=== PATIENT | male | born 1990 | race Caucasian/White ===

== ENCOUNTER 2018-06-14 20:08 | Inpatient (IN) | payer OTHER, BC ==
[2018-06-14 21:01] LABS: HEMATOCRIT 41.8 % (42.0-52.0); HEMOGLOBIN 13.8 g/dl (13.5-17.5); MEAN CORPUSCULAR HEMOGLOBIN 28.1 pg (27.0-33.0); MEAN CORPUSCULAR VOLUME 85.1 fl (80.0-96.0); PLATELET COUNT, AUTOMATED 339 10^3/uL (150-450); RED BLOOD COUNT 4.91 10^6/uL (4.30-6.10); RED CELL DISTRIBUTION WIDTH 12.7 % (11.5-14.5); WHITE BLOOD COUNT 9.2 10^3/uL (4.0-10.0)
[2018-06-14 21:16] LABS: AMPHETAMINES LEVEL URINE NEGATIVE (NEGATIVE); BARBITURATES URINE NEGATIVE (NEGATIVE); BENZODIAZEPINES URINE NEGATIVE (NEGATIVE); CANNABINOIDS URINE NEGATIVE (NEGATIVE); COCAINE METABOLITE URINE NEGATIVE (NEGATIVE); METHADONE URINE NEGATIVE (NEGATIVE); OPIATES URINE NEGATIVE (NEGATIVE); PHENCYCLIDINE URINE NEGATIVE (NEGATIVE)
[2018-06-14 21:38] LABS: ALBUMIN 4.1 GM/DL (3.2-5.2); ALBUMIN/GLOBULIN RATIO 1.14 (1.00-1.93); ALKALINE PHOSPHATASE 81 U/L (45-117); ALT/SGPT 39 U/L (12-78); ANION GAP 8 MEQ/L (8-16); AST/SGOT 21 U/L (7-37); BILIRUBIN,DIRECT 0.1 MG/DL (0.0-0.2); BILIRUBIN,TOTAL 0.7 MG/DL (0.2-1.0); BLOOD UREA NITROGEN 17 MG/DL (7-18); CALCIUM LEVEL 8.8 MG/DL (8.5-10.1); CARBON DIOXIDE LEVEL 27 MEQ/L (21-32); CHLORIDE LEVEL 109 MEQ/L (98-107); CREATININE FOR GFR 0.95 MG/DL (0.70-1.30); ETHYL ALCOHOL (ETHANOL) 0.004 % (0.000-0.010); GLOMERULAR FILTRATION RATE > 60.0 (>60); GLUCOSE, FASTING 99 MG/DL (70-100); SALICYLATE LEVEL < 1.7 MG/DL (5.0-30.0); SODIUM LEVEL 144 MEQ/L (136-145); THYROID STIMULATING HORMONE 0.645 uIU/ML (0.358-3.740); TOTAL PROTEIN 7.7 GM/DL (6.4-8.2)
[2018-06-14 21:39] LABS: ACETAMINOPHEN LEVEL < 2.0 UG/ML (10.0-30.0)
[2018-06-14] MEDS ORDERED: MAALOX 30 ML SUSP *UDC PO (22:30)
[2018-06-14] MEDS ORDERED: MOM 30ML SUSPENSION UDC PO (22:30)
[2018-06-14] MEDS ORDERED: LORazepam 2 MG TAB PO (22:30)
[2018-06-14] MEDS: risperiDONE 2 MG TAB PO (23:19)
[2018-06-15] MEDS: risperiDONE 2 MG TAB PO (21:17)
[2018-06-16] MEDS: FLUoxetine 10 MG CAP PO (13:01)
[2018-06-16] MEDS: risperiDONE 3 MG TAB PO (20:58)
[2018-06-17] MEDS: FLUoxetine 10 MG CAP PO (08:38)
[2018-06-17] MEDS: risperiDONE 3 MG TAB PO (21:15)
[2018-06-18] MEDS: FLUoxetine 10 MG CAP PO (08:02)
[2018-06-18] MEDS: risperiDONE 3 MG TAB PO (21:58)
[2018-06-18] MEDS: traZODone 50 MG TAB PO (21:59)
[2018-06-19] MEDS: FLUoxetine 10 MG CAP PO (08:11)
[2018-06-19] MEDS: risperiDONE 2 MG TAB PO (21:22)
[2018-06-19] MEDS: traZODone 50 MG TAB PO (22:32)
[2018-06-20] MEDS: FLUoxetine 20 MG CAP PO (08:01)
[2018-06-20] MEDS: ACETAMINOPHEN TAB 650MG DOSE (2X325MG) PO (21:16)
[2018-06-20] MEDS: risperiDONE 2 MG TAB PO (21:16)
[2018-06-20] MEDS: traZODone 50 MG TAB PO (22:33)
[2018-06-21] MEDS: FLUoxetine 20 MG CAP PO (08:03)
[2018-06-21] MEDS: risperiDONE 2 MG TAB PO (20:29)
[2018-06-21] MEDS: traZODone 100 MG TAB PO (21:44)
[2018-06-22] MEDS: FLUoxetine 20 MG CAP PO (08:25)
[2018-06-22] MEDS: risperiDONE 2 MG TAB PO (20:40)
[2018-06-23] MEDS: FLUoxetine 20 MG CAP PO (08:02)
[2018-06-23] MEDS: risperiDONE 2 MG TAB PO (20:43)
[2018-06-24] MEDS: FLUoxetine 20 MG CAP PO (08:28)
[2018-06-24] MEDS: risperiDONE 2 MG TAB PO (20:39)
[2018-06-25] MEDS: FLUoxetine 20 MG CAP PO (08:21)
[2018-06-25] MEDS: risperiDONE 2 MG TAB PO (21:34)
[2018-06-26] MEDS: FLUoxetine 20 MG CAP PO (08:12)
[2018-06-26] MEDS: ACETAMINOPHEN TAB 650MG DOSE (2X325MG) PO (10:34)
== END 2018-06-26 11:55 | disposition home or self-care (01) | DRG 885 ==
LOC: M PSY 06-17 18:05 → M ED 20:08 → M ED INP 22:22 → M PSY 23:02
DX: F33.3 Major depressive disorder, recurrent, severe with psychotic symptoms (principal); Z81.8 Family history of other mental and behavioral disorders; Z91.5 Personal history of self-harm; G47.00 Insomnia, unspecified; Z62.811 Personal history of psychological abuse in childhood

== ENCOUNTER 2019-08-16 20:40 | Inpatient (IN) | payer OTHER ==
[~2019-08-16] VITALS: Ht 172.7 cm; Wt 122.1 kg
[~2019-08-16 20:40] MED LIST: FLUO20CA19 PO; RISP4TAB2 PO
[2019-08-16] MEDS ORDERED: BUPR150T3 (20:56)
[2019-08-16 21:36] LABS: HEMATOCRIT 43.8 % (42.0-52.0); HEMOGLOBIN 14.7 g/dl (13.5-17.5); MEAN CORPUSCULAR HEMOGLOBIN 28.4 pg (27.0-33.0); MEAN CORPUSCULAR HGB CONC 33.6 g/dl (32.0-36.5); MEAN CORPUSCULAR VOLUME 84.6 fl (80.0-96.0); PLATELET COUNT, AUTOMATED 366 10^3/uL (150-450); RED BLOOD COUNT 5.18 10^6/uL (4.30-6.10); WHITE BLOOD COUNT 11.9 10^3/uL (4.0-10.0)
[2019-08-16 21:55] LABS: AMPHETAMINES LEVEL URINE NEGATIVE (NEGATIVE); BARBITURATES URINE NEGATIVE (NEGATIVE); BENZODIAZEPINES URINE NEGATIVE (NEGATIVE); CANNABINOIDS URINE NEGATIVE (NEGATIVE); COCAINE METABOLITE URINE NEGATIVE (NEGATIVE); METHADONE URINE NEGATIVE (NEGATIVE); OPIATES URINE NEGATIVE (NEGATIVE); PHENCYCLIDINE URINE NEGATIVE (NEGATIVE)
[2019-08-16 22:06] LABS: ACETAMINOPHEN LEVEL < 2.0 UG/ML (10.0-30.0); ALBUMIN 4.4 GM/DL (3.2-5.2); ALT/SGPT 26 U/L (12-78); BILIRUBIN,DIRECT 0.1 MG/DL (0.0-0.2); BILIRUBIN,TOTAL 0.7 MG/DL (0.2-1.0); BLOOD UREA NITROGEN 14 MG/DL (7-18); CALCIUM LEVEL 9.2 MG/DL (8.5-10.1); CARBON DIOXIDE LEVEL 26 MEQ/L (21-32); CHLORIDE LEVEL 105 MEQ/L (98-107); CREATININE FOR GFR 1.06 MG/DL (0.70-1.30); ETHYL ALCOHOL (ETHANOL) < 0.003 % (0.000-0.010); GLOMERULAR FILTRATION RATE > 60.0 (>60); GLUCOSE, FASTING 86 MG/DL (70-100); POTASSIUM SERUM 4.2 MEQ/L (3.5-5.1); SALICYLATE LEVEL < 1.7 MG/DL (5.0-30.0); SODIUM LEVEL 138 MEQ/L (136-145); TOTAL PROTEIN 7.8 GM/DL (6.4-8.2)
[2019-08-16] MEDS ORDERED: RISP4TAB2 PO (22:28)
[2019-08-16] MEDS ORDERED: FLUO20CA8 PO (22:28)
[2019-08-16] MEDS ORDERED: BUPR150T3 PO (22:28)
[2019-08-16] MEDS ORDERED: traZODone 50 MG TAB PO PRN (23:45)
[2019-08-16] MEDS ORDERED: ACETAMINOPHEN TAB 650MG DOSE (2X325MG) PO PRN (23:45)
[2019-08-16] MEDS ORDERED: MOM 30ML SUSPENSION UDC PO PRN (23:45)
[2019-08-16] MEDS ORDERED: MAALOX 30 ML SUSP *UDC PO PRN (23:45)
[2019-08-17 03:00] VITALS: BP 143/84
[2019-08-17 06:07] VITALS: BP 138/90
[2019-08-17 06:33] VITALS: BP 138/90
--- NOTE | 2019-08-17 09:50 | MHHPEPDOC ---
[facility] History & Physical History and Physical DATE OF ADMISSION: Aug 16, 2019 at 23:38 Yassine Stockton New Patient Yassine Stockton Select Gender MRN: N/A Date of : MM/DD/YYYY Date of Service: 08/17/2019 Chief Complaint "I had a really bad day." History of Present Illness The patient is a 29-year-old man with a history of depression with a psychotic side symptom on a previous admission presents to [facility] increasingly depressed, despondent, fatigued, and having loss of interest after getting into multiple arguments with his spouse who is currently visiting friends. She reported that she wished to be for a short time, but has now decided that she wishes to be from him and that this had led to a combination of interpersonal fights leading to him feeling increasingly suicidal and worried that he would end his life. He had reported these thoughts to his who had called the police and brought him in for evaluation. When the patient was met with he described that he was fairly suicidal and had difficulty with his medications, increasingly anxious and depressed. He had a plan to overdose on his medications. Review Of Systems Depression: As above with previous episodes. Anxiety: The patient denies any excessive worry associated with physical symptoms. They deny any experience of discreet panic in the past. Lisa: The patient denies any episodes of euphoria/dysphoria associated with decreased need for sleep, hedonism, talkatively or impulsivity lasting longer than 5 days. Psychotic: Previous symptoms of paranoia and auditory hallucinations, but none currently on risperidone. Trauma: The patient denies any traumatic events associated with nightmares or intrusive thoughts. Borderline: The patient screens negative for borderline personality at this junction. Past Psychiatric History The patient has a history of MDD with psychotic features, last admitted in 2018. He has a history of suicide attempts in the past. Currently on Wellbutrin, Prozac, and risperidone. Currently sees Dr. Mora for medications at [facility] with Yandy for therapy. Allergies Please see below. Family Psychiatric History The patient has a mental health history in his mother who has received treatment with no addictions. His mother has attempted to commit suicide in the past. Social History The patient grew up in the local area, is currently to his first . He lives in his own home with his , as well as, his younger brother. He has been together with his for 5 years and they are currently pending divorce. He is employed. He graduated high school and is currently in the [employer] program. He has 2 years of criminal justice experience. No history of legal problems. He grew up in a family where his parents were and described that it was somewhat difficult when he was growing up due to his mother having homicidal ideations towards him as a child when he was younger, but had never acted on them. He reports that his relationship with his father was at times dif ficult. He was primarily raised by his father, after his mother's mental illness became difficult, at age 16. No history of service. Substance Abuse History The patient denies any excessive alcohol use, tobacco or illicit drug use, denies history of substance use treatment. Medical History Patient has no significant past medical history. Mental Status Examination General: Fair hygiene Speech: Fluid Thought processes: Linear and logical MSK: Smooth and coordinated gait, no signs of tremors or involuntary orofacial movements Thought content: Hopeless Abstract reasoning, and computation: Intact Description of associations: Intact Description of abnormal or psychotic thoughts: Admits to passive SI with no plan or intention to act on at this point. Denies homicidal ideation. Denies auditory or visual hallucinations at this time. Judgment: Poor Insight: Poor Orientation: Alert and orientated 3 Cognition: Grossly normal Recent and remote memory: Intact Attention span and concentration: Intact Fund of knowledge: Adequate Mood: "Bad." Affect: Dysphoric with a constricted range. Diagnoses Adjustment disorder with disruption of mood and conduct. MDD, severe, recurrent with psychotic features in remission. Assessment and Plan Adjustment disorder: Recommend therapy, inpatient milieu. MDD, severe in remission: Continue risperidone. Increase Prozac to 70 mg daily. Continue Wellbutrin. Disposition Patient will need admission likely lasting one or two midnights in order to treat his depression and suicidality. Problem List 1. Risk for suicide. 2. Depression. 3. Ineffective coping. Initial Treatment Plan 1. Patient was admitted on a 9.39 legal status. 2. Complete history was obtained. 3. With patients permission, family will be contacted and database will be expanded. 4. Patients medication regimen will be reviewed and changed accordingly. 5. Patient will be provided with protected environment. 6. Patient will be treated with individual, group, and milieu therapies. 7. Patient will receive supportive psych-education. 8. Discharge planning will commence immediately. 9. Outpatient follow-up treatment will be strongly recommended. 10. The initial treatment plan will focus initially on: Estimated Length Of Stay Three days. Time Spent 45 minutes. Vital Signs Vital Signs Date Time Temp Pulse Resp B/P (MAP) Pulse Ox O2 Delivery O2 Flow Rate FiO2 08/17/19 06:07 97.7 80 16 138/90 (106) Room Air 08/16/19 20:50 98 Laboratory Data 24H Labs Laboratory Tests 2 08/16/19 21:20: Urine Opiates Screen NEGATIVE, Urine Methadone Screen NEGATIVE, Urine Barbiturates Screen NEGATIVE, Urine Phencyclidine Screen NEGATIVE, Urine Amph etamines Screen NEGATIVE, Urine Benzodiazepines Screen NEGATIVE, Urine Cocaine Metabolite Screen NEGATIVE, Urine Cannabinoids Screen NEGATIVE 08/16/19 21:25: Nucleated Red Blood Cells % (auto) 0.0, Anion Gap 7L, Glomerular Filtration Rate > 60.0, Calcium Level 9.2, Total Bilirubin 0.7, Direct Bilirubin 0.1, Aspartate Amino Transf (AST/SGOT) 16, Alanine Aminotransferase (ALT/SGPT) 26, Alkaline Phosphatase 88, Total Protein 7.8, Albumin 4.4, Albumin/Globulin Ratio 1.29, Thyroid Stimulating Hormone (TSH) 1.150, Salicylates Level < 1.7L, Acetaminophen Level < 2.0L, Ethyl Alcohol Level < 0.003 CBC/BMP Laboratory Tests 08/16/19 21:25 Medications Scheduled Bupropion Hcl (Bupropion Xl) 150 Mg Tab.er.24h, 150 MG PO QHS, (Reported) Fluoxetine Hcl (Fluoxetine HCl) 20 Mg Capsule, 60 MG PO DAILY, (Reported) Risperidone (Risperidone) 4 Mg Tablet, 4 MG PO QHS, (Reported) Allergies Coded Allergies: No Known Allergies (Unverified , 06/14/18) LOGAN ELLIS DO Aug 17, 2019 09:50
[2019-08-17 16:35] VITALS: BP 140/88
[2019-08-17] MEDS ORDERED: FLUoxetine 20 MG CAP PO ONE (20:00)
--- NOTE | 2019-08-17 20:34 | HPEPDOC ---
General Date of Admission Aug 16, 2019 at 23:38 Date of Service: Aug 17, 2019 Chief Complaint The patient is a 29-year-old male admitted with a reason for visit of Unspecified Deressive D/O. Source: Patient Exam Limitations: No limitations Timing/Duration: Unsure Severity: Mild Associated Symptoms: Other (9) History of Present Illness This is a 29-year-old male who was placed in the inpatient mental health unit due to an episode of fairly severe depression. The patient denies any other symptoms or complaints. Home Medications Scheduled Bupropion Hcl (Bupropion Xl) 150 Mg Tab.er.24h, 150 MG PO QHS, (Reported) Fluoxetine Hcl (Fluoxetine HCl) 20 Mg Capsule, 60 MG PO DAILY, (Reported) Risperidone (Risperidone) 4 Mg Tablet, 4 MG PO QHS, (Reported) Allergies Coded Allergies: No Known Allergies (Unverified , 06/14/18) Past Medical History Medical History The patient denies any history of medical problems. Surgical History The patient denies having had any surgeries. Family History Significant Family History: Cancer Patient also relates history of family member with dementia. 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 Physical Examination General Exam: Positive: Alert, No Acute Distress Eye Exam: Positive: PERRLA, Conjunctiva & lids normal, EOMI; Negative: Sclera icteric ENT Exam: Positive: Atraumatic, Mucous membr. moist/pink, Pharynx Normal Neck Exam: Positive: Supple; Negative: JVD, thyromegaly Chest Exam: Positive: Clear to auscultation, Normal air movement Heart Exam: Positive: Rate Normal, Regular Rhythm, Normal S1, Normal S2; Negative: Murmurs, Rubs Abdomen Exam: Positive: Normal bowel sounds, Soft; Negative: Tenderness, Hepatospenomegaly Extremity Exam: Positive: Normal pulses; Negative: Clubbing, Cyanosis, Edema Skin Exam: Positive: Nl turgor and temperature, Other skin issue (the patient does have a number of insect bites, but they are noninfected); Negative: Breakdown, Lesion Neuro Exam: Positive: Normal Gait, Normal Speech, Cranial Nerves 3-12 NL, Reflexes 2+ Psych Exam: Positive: Oriented x 3, Other (the patient has a very flat affect) Vital Signs Vital Signs Date Time Temp Pulse Resp B/P (MAP) Pulse Ox O2 Delivery O2 Flow Rate FiO2 08/17/19 16:35 97.9 78 18 140/88 (105) 08/17/19 06:07 Room Air 08/16/19 20:50 98 Laboratory Data Labs 24H Laboratory Tests 2 08/16/19 21:20: Urine Opiates Screen NEGATIVE, Urine Methadone Screen NEGATIVE, Urine Barbiturates Screen NEGATIVE, Urine Phencyclidine Screen NEGATIVE, Urine Amphetamines Screen NEGATIVE, Urine Benzodiazepines Screen NEGATIVE, Urine Cocaine Metabolite Screen NEGATIVE, Urine Cannabinoids Screen NEGATIVE 08/16/19 21:25: Nucleated Red Blood Cells % (auto) 0.0, Anion Gap 7L, Glomerular Filtration Rate > 60.0, Calcium Level 9.2, Total Bilirubin 0.7, Direct Bilirubin 0.1, Aspartate Amino Transf (AST/SGOT) 16, Alanine Aminotransferase (ALT/SGPT) 26, Alkaline Phosphatase 88, Total Protein 7.8, Albumin 4.4, Albumin/Globulin Ratio 1.29, Thyroid Stimulating Hormone (TSH) 1.150, Salicylates Level < 1.7L, Acetaminophen Level < 2.0L, Ethyl Alcohol Level < 0.003 CBC/BMP Laboratory Tests 08/16/19 21:25 Assessment/Plan This is a 29-year-old male who has been placed in the inpatient mental health unit for depression. He denies any history of medical problems. He does not have any active medical problems to exam. We will sign off of the case; should had any acute medical issues arise, please do not hesitate to recontact us. Plan / VTE VTE Prophylaxis Ordered?: No VTE Exclusion Mechanical Proph: Low Risk for VTE Plan Anticipated Discharge: Home MELANIE MARQUEZ MD Aug 17, 2019 20:34
[2019-08-17] MEDS: buPROPion **XL** TABLET 150MG (WELLBUTRIN XL) PO SCH (20:45)
[2019-08-17] MEDS: risperiDONE 2 MG TAB PO SCH (20:45)
[2019-08-18 06:44] VITALS: BP 140/86
[2019-08-18] MEDS: FLUoxetine 20 MG CAP PO SCH (08:37)
[2019-08-18] MEDS: FLUoxetine 10 MG CAP PO SCH (08:37)
[2019-08-18 16:24] VITALS: BP 128/70
--- NOTE | 2019-08-18 18:11 | MHIPN ---
DATE: 08/18/2019 VITAL SIGNS: Blood pressure 128/70, pulse 79, temperature 98.7. CHIEF COMPLAINT: Says feels okay. SUBJECTIVE: Seen for followup in the presence of staff. Says feels okay but somewhat vague about this. Later suggests he is a little less anxious and that moods are better. MENTAL STATUS EXAMINATION: Neat, cooperative. Tends to rock back and forth periodically. No psychomotor retardation. He is coherent. Affect is reactive within a fair range. Denies any thoughts of harming himself or anyone else. Currently there is no evidence of any psychosis, in that he does not appear to be internally preoccupied. Judgment and insight are compromised. ASSESSMENT: Major depressive disorder, possibly with psychotic features. PLAN: Continue current care and observations and the Prozac at the current dose. Bupropion and Risperdal as well. He has been seen by the assigned psychiatrist and admission summary not available at this point. Further recommendations will be made depending in the clinical picture.
[2019-08-18] MEDS: buPROPion **XL** TABLET 150MG (WELLBUTRIN XL) PO SCH (23:02)
[2019-08-18] MEDS: risperiDONE 2 MG TAB PO SCH (23:02)
[2019-08-19 06:29] VITALS: BP 128/65
[2019-08-19] MEDS: FLUoxetine 20 MG CAP PO SCH (09:26)
[2019-08-19] MEDS: FLUoxetine 10 MG CAP PO SCH (09:26)
[2019-08-19 16:32] VITALS: BP 118/74
--- NOTE | 2019-08-19 16:59 | MHIPN ---
DATE OF SERVICE: 08/19/2019 VITAL SIGNS: Blood pressure 128/65, pulse 66, temperature 97. CHIEF COMPLAINT: Says feels okay. SUBJECTIVE: Is seen for followup in the presence of staff. Says feels okay and that he slept well. Indicates moods are okay. MENTAL STATUS EXAMINATION: Neat, cooperative. There is no agitation. He is not rocking back and forth either. No psychomotor retardation. He is coherent. Affect is somewhat restricted in range. Denies any thoughts of harming himself or anyone else. No evidence of psychosis at present. Judgment and insight are fair. ASSESSMENT: 1. Major depressive disorder, possibly with psychotic features. PLAN: Continue current care. The Prozac, Risperidone and bupropion are to continue. He is to see the assigned psychiatrist tomorrow, as well as the treatment team and further recommendations will be made.
[2019-08-19] MEDS: buPROPion **XL** TABLET 150MG (WELLBUTRIN XL) PO SCH (21:04)
[2019-08-19] MEDS: risperiDONE 2 MG TAB PO SCH (21:05)
[2019-08-20 06:34] VITALS: BP 128/69
[2019-08-20] MEDS: FLUoxetine 20 MG CAP PO SCH (09:20)
[2019-08-20] MEDS: FLUoxetine 10 MG CAP PO SCH (09:20)
--- NOTE | 2019-08-20 09:44 | MHDSPDOC ---
[facility] Discharge Summary Discharge Summary DATE OF ADMISSION: Aug 16, 2019 at 23:38 DATE OF DISCHARGE: 08/20/19 Yassine Stockton Discharge Yassine Stockton Select Gender MRN: N/A Date of : MM/DD/YYYY Date of Service: 08/20/2019 Diagnoses Adjustment disorder with disruption of mood and conduct. MDD, severe, recurrent with psychotic features in remission. History of Present Illness The patient is a 29-year-old man with a history of depression with a psychotic side symptom on a previous admission presents to [facility] increasingly depressed, despondent, fatigued, and having loss of interest after getting into multiple arguments with his spouse who is currently visiting friends. She reported that she wished to be for a short time, but has now decided that she wishes to be from him and that this had led to a combination of interpersonal fights leading to him feeling increasingly suicidal and worried that he would end his life. He had reported these thoughts to his who had called the police and brought him in for evaluation. When the patient was met with he described that he was fairly suicidal and had difficulty with his medications, increasingly anxious and depressed. He had a plan to overdose on his medications. Consultants Involved Hospitalist/PCP screening Treatment and Progress On The Unit The patient was admitted to the inpatient unit and subsequently increased on his Prozac to a total of 70 mg daily with positive results. It was postulated that the patient's presentation was far more likely to be adjustment rather than a resurgence of his major depression, which previously presented with psychotic features. During his time on the inpatient unit, the psychotic symptoms did not reemerge and he resolved becoming less depressed, less anxious and his suicidal thoughts had vanished several days after he was admitted to the inpatient unit. He was able to cooperate with discharge planning and requested to leave on Tuesday. On the day of discharge, he did not meet involuntary criteria. My clinical judgment as he had been denying suicidal thoughts for at least 24 hours prior to his discharge, he had been less anxious, improved mental status and had been cooperating with his discharge, expressing a better insight, accomplishing his treatment goals. He additionally had not demonstrated any homicidal ideation and at the time of discharge did not appear to be incapacitated by his mental illness. He declined a further voluntary admission and thus was discharged in good vicki. The provider that had seen him over the weekend noted some possible psychotic symptoms, however, it appeared that these were likely misconstrued, as the patient had no psychotic symptoms or signs on mental status exam on r eexamination on Tuesday that would suggest that they had in fact returned. Discharge Assessment 29-year-old man with a history of major depression with psychotic features presents primarily with adjustment with his previous MDD likely in remission. Mental Status Examination General: Well dressed with good hygiene Speech: Spontaneous and fluid Thought processes: Linear and logical MSK: Smooth and coordinated gait, no signs of tremors or involuntary orofacial movements Thought content: Future orientated Abstract reasoning, and computation: Intact Description of associations: Intact Description of abnormal or psychotic thoughts: She denies any suicidal ideation. Does not appear to be responding to internal stimuli. Denies homicidal and perceptual problems Judgment: fair Insight: fair Orientation: Alert and orientated 3 Cognition: Grossly normal Recent and remote memory: Intact Attention span and concentration: Intact Fund of knowledge: Adequate Mood: "okay" Affect: Euthymic with a full range Follow Up The social work team worked during the predischarge meeting in order to evaluate for further issues of lethality address them fully before discharge. They worked on safety planning with the patient's family members in order to ensure that the patient will have a safe and effective discharge. Time Spent The amount of time spent in the coordination of care for this patient was approximately 30 minutes. Vital Signs/I&Os Vital Signs Date Time Temp Pulse Resp B/P (MAP) Pulse Ox O2 Delivery O2 Flow Rate FiO2 08/20/19 06:34 97.5 68 14 128/69 (88) 08/18/19 06:44 Room Air 08/16/19 20:50 98 Medications Scheduled Bupropion Hcl (Bupropion Xl) 150 Mg Tab.er.24h, 150 MG PO QHS, (Reported) Fluoxetine Hcl (Fluoxetine HCl) 20 Mg Capsule, 60 MG PO DAILY, (Reported) Fluoxetine Hcl (Fluoxetine HCl) 10 Mg Capsule, 10 MG PO DAILY for mood for 7 Days, #7 Risperidone (Risperidone) 4 Mg Tablet, 4 MG PO QHS, (Reported) Allergies Coded Allergies: No Known Allergies (Unverified , 06/14/18) LOGAN ELLIS DO Aug 20, 2019 09:44
[2019-08-20] MEDS ORDERED: FLUO10CA8 PO (09:47)
== END 2019-08-20 12:00 | disposition home or self-care (01) | DRG 882 ==
LOC: M ED 20:40 → M ED INP 23:38 → M PSY 08-17 02:13
PROVIDERS: ADMIT Psychiatry & Neurology Psychiatry; ATTEND Psychiatry & Neurology Addiction Medicine
DX: F43.25 Adjustment disorder with mixed disturbance of emotions and conduct (principal); F33.2 Major depressive disorder, recurrent severe without psychotic features; Z63.5 Disruption of family by separation and divorce; Z81.8 Family history of other mental and behavioral disorders; Z79.899 Other long term (current) drug therapy

== ENCOUNTER → 2023-09-23 | Outpatient (REF) | payer OTHER ==
[~2023-09-23] MED LIST changes: +BUPR150T12; +BUPR150T12 PO; +FLUO-96 PO; +FLUO10CA18 PO; -FLUO20CA19 PO; +FLUO20CA22 PO; +RISP-11 PO; -RISP4TAB2 PO
== END ==
LOC: M LAB REF 15:55
PROVIDERS: ATTEND Internal Medicine Gastroenterology
DX: R19.7 Diarrhea, unspecified (principal)

== ENCOUNTER → 2023-09-23 | Outpatient (CLI) | payer OTHER ==
[2023-09-23 16:22] LABS: FREE T4 1.28 NG/DL (0.89-1.76); THYROID STIMULATING HORMONE 0.713 uIU/ML (0.55-4.78)
== END ==
LOC: M LAB 15:08
PROVIDERS: ATTEND Internal Medicine Gastroenterology
DX: R19.4 Change in bowel habit (principal); R19.7 Diarrhea, unspecified

== ENCOUNTER 2023-11-29 06:39 | Day surgery (SDC) | payer OTHER ==
[~2023-11-29] VITALS: Ht 175.3 cm; Wt 115.7 kg
[~2023-11-29 06:39] MED LIST changes: +BUSP10TA PO; +LITH300C PO; +LUMA42CA PO; +MIRT1TAB16 PO; +NS 1,000 ML IV ONE; +PRAZ2CAP PO
[2023-11-29] MEDS ORDERED: propofoL 200 MG/20 ML VIAL As Ordered ONE (07:10)
[2023-11-29 08:29] VITALS: BP 137/87; TEMP 98.2; O2SAT 99
== END 2023-11-29 08:25 | disposition home or self-care (01) ==
LOC: M OPP 06:39
PROVIDERS: ATTEND Internal Medicine Gastroenterology
DX: K63.5 Polyp of colon (principal); R19.4 Change in bowel habit; Z79.899 Other long term (current) drug therapy

== ENCOUNTER 2024-06-08 11:14 | Day surgery (SDC) | payer OTHER ==
[~2024-06-08] VITALS: Ht 172.7 cm; Wt 113.9 kg
[~2024-06-08 11:14] MED LIST changes: +FLUO-290 PO; +FLUO-365 PO; -FLUO10CA18 PO; -FLUO20CA22 PO; +HALO5TAB33 PO; -RISP-11 PO; +RISP4TAB95 PO
[2024-06-08] MEDS ORDERED: LIDOCAINE 2% 100MG/5ML SDV (FOR ANES.) As Ordered ONE (11:47)
[2024-06-08] MEDS ORDERED: propofoL 500 MG/50 ML VIAL As Ordered ONE (11:47)
[2024-06-08] MEDS ORDERED: fentaNYL 100 MCG/2 ML INJECTION As Ordered ONE (11:48)
[2024-06-08 13:22] VITALS: BP 128/88; O2SAT 100
== END 2024-06-08 13:22 | disposition home or self-care (01) ==
LOC: M OPP 11:14
PROVIDERS: ATTEND Internal Medicine Gastroenterology
DX: R10.13 Epigastric pain (principal); K29.50 Unspecified chronic gastritis without bleeding; K20.90 Esophagitis, unspecified without bleeding; Z79.899 Other long term (current) drug therapy
CPT/HCPCS: 43239; 88305; J3010

== ENCOUNTER 2025-06-04 23:21 | Inpatient (IN) | payer OTHER ==
[~2025-06-04] VITALS: Ht 175.3 cm; Wt 111.4 kg
[~2025-06-04 23:21] MED LIST changes: -NS 1,000 ML IV ONE
[2025-06-05] MEDS ORDERED: IBUPROFEN 400 MG TAB PO PRN (03:35)
[2025-06-05] MEDS ORDERED: ACETAMINOPHEN 325 MG TAB PO PRN (03:35)
[2025-06-05] MEDS ORDERED: MOM 30 ML SUSPENSION UDC PO PRN (03:35)
[2025-06-05] MEDS ORDERED: MAALOX 30 ML SUSP *UDC PO PRN (03:35)
[2025-06-05 04:48] VITALS: BP 148/101; TEMP 97.4
[2025-06-05 04:54] VITALS: BP 148/101; TEMP 97.4; O2SAT 100
[2025-06-05 08:30] VITALS: BP 118/62
[2025-06-05] MEDS: LORazepam 1 MG TAB PO ONE (14:24)
[2025-06-05] MEDS ORDERED: BUPR-766 PO (14:36)
[2025-06-05] MEDS ORDERED: LITH150C PO (14:36)
[2025-06-05] MEDS ORDERED: HOME MED LIST COMPLETE! XX SCH (14:40)
[2025-06-05 15:16] VITALS: BP 144/82; TEMP 97.6; O2SAT 98
[2025-06-05 20:10] VITALS: BP 144/82; TEMP 97.6; O2SAT 98
[2025-06-05] MEDS: busPIRone 5 MG TAB PO SCH (20:51)
[2025-06-05] MEDS: buPROPion **XL** 150 MG TABLET PO SCH (20:51)
[2025-06-05] MEDS: RAMELTEON 8 MG TAB PO SCH (20:51)
[2025-06-05] MEDS: PRAZOSIN 1 MG CAP PO SCH (20:54)
[2025-06-05] MEDS: LITHIUM CARBONATE 300 MG CAP PO SCH (20:55)
[2025-06-06 06:37] VITALS: BP 111/72; TEMP 97; O2SAT 18
[2025-06-06 14:59] VITALS: BP 127/75; TEMP 98.6; O2SAT 97
[2025-06-07 06:35] VITALS: BP 117/68; TEMP 97.5; O2SAT 97
[2025-06-07] MEDS: busPIRone 5 MG TAB PO SCH (09:23)
[2025-06-07 15:15] VITALS: BP 144/98; TEMP 98.4; O2SAT 100
[2025-06-07 17:31] VITALS: BP 126/79
[2025-06-07] MEDS: buPROPion **XL** 150 MG TABLET PO SCH (20:38)
[2025-06-08 06:34] VITALS: BP 130/61; TEMP 97.6; O2SAT 98
[2025-06-08 14:51] VITALS: BP 142/83; TEMP 98.7; O2SAT 98
[2025-06-09 06:35] VITALS: BP 137/74; TEMP 97.3; O2SAT 97
[2025-06-09] MEDS: buPROPion **XL** 150 MG TABLET PO SCH (08:09)
[2025-06-09 15:25] VITALS: BP 129/74; TEMP 98.8; O2SAT 98
[2025-06-09 21:03] VITALS: BP 129/74
[2025-06-09] MEDS: traZODone 50 MG TAB PO PRN (21:54)
[2025-06-10 06:30] VITALS: BP 113/58; TEMP 96.8; O2SAT 99
[2025-06-10] MEDS ORDERED: RAME8TAB2 PO (11:02)
[2025-06-10] MEDS ORDERED: PRAZ1CAP PO (11:02)
[2025-06-10] MEDS ORDERED: BUPR150T12 PO (11:02)
[2025-06-10] MEDS ORDERED: LITH300C PO (11:02)
[2025-06-10] MEDS ORDERED: BUSP10TA PO (11:02)
== END 2025-06-10 14:17 | disposition home or self-care (01) | DRG 885 ==
LOC: M ED 23:21 → M ED INP 06-05 03:34 → M PSY 06-05 04:27
PROVIDERS: ADMIT Student in an Organized Health Care Education/Training Program; ATTEND Student in an Organized Health Care Education/Training Program
DX: F33.1 Major depressive disorder, recurrent, moderate (principal); R45.851 Suicidal ideations; F41.9 Anxiety disorder, unspecified; F43.10 Post-traumatic stress disorder, unspecified; Z91.51 Personal history of suicidal behavior; Z81.8 Family history of other mental and behavioral disorders; Z79.899 Other long term (current) drug therapy; Z63.0 Problems in relationship with spouse or partner